=== PATIENT | female | born 1970 | race Caucasian/White ===

== ENCOUNTER 2018-12-25 07:54 | Outpatient (CLI) | payer OTHER ==
[2018-12-25] MEDS ORDERED: LEVO-T25 MCG PO (09:42)
[2018-12-25] MEDS ORDERED: AMBIEN10 MG PO (09:42)
[2018-12-25] MEDS ORDERED: FERROUS FUMARA324 MG PO (09:43)
[2018-12-25] MEDS ORDERED: DICY20TA PO (09:43)
[2018-12-25] MEDS ORDERED: CLARITIN10 M1 PO (09:43)
[2018-12-25] MEDS ORDERED: EFFEXOR XR37.5 MG PO (09:43)
[2018-12-25] MEDS ORDERED: FOLIC ACID1 MG PO (09:44)
[2018-12-25] MEDS ORDERED: NEURONTIN800 MG PO (09:44)
[2018-12-25] MEDS ORDERED: TRAMADOL HCL50 MG PO (09:47)
[2018-12-25] MEDS ORDERED: FLUCONAZOLE50 MG PO (09:48)
[2018-12-25] MEDS ORDERED: COZAAR25 MG PO (09:49)
[2018-12-25] MEDS ORDERED: CLONAZEPAM0.5 M1 PO (09:50)
[2018-12-25] MEDS ORDERED: AMITRIPTYLINE H50 MG PO (11:42)
== END 2018-12-25 08:14 | disposition home or self-care (01) ==
LOC: LAB 07:54
DX: N62 Hypertrophy of breast (principal)

== ENCOUNTER 2019-01-05 06:24 | Day surgery (SDC) | payer OTHER ==
[~2019-01-05 06:24] MED LIST: AMBIEN10 MG PO; AMITRIPTYLINE H50 MG PO; CLARITIN10 M1 PO; CLONAZEPAM0.5 M1 PO; COZAAR25 MG PO; DICY20TA PO; EFFEXOR XR37.5 MG PO; FERROUS FUMARA324 MG PO; FLUCONAZOLE50 MG PO; FOLIC ACID1 MG PO; LEVO-T25 MCG PO; NEURONTIN800 MG PO; TRAMADOL HCL50 MG PO
== END 2019-01-05 14:45 | disposition home or self-care (01) ==
LOC: CIR.AMB 06:24
PROVIDERS: Plastic Surgery
PROC: 0HBV0ZZ Excision of Bilateral Breast, Open Approach (ICD-10-PCS; principal; 2019-01-05 13:30)
DX: N62 Hypertrophy of breast (principal)